=== PATIENT | male | born 1960 | race Caucasian/White ===

== ENCOUNTER 2023-07-30 12:33 | Emergency (ER) | payer MEDICARE, BC, SELFPAY ==
[2023-07-30] VITALS (10 sets, daily range): BP systolic 112; BP diastolic 72; PULSE 61–84; RESP 18; TEMP 36.5; O2SAT 95–99
--- NOTE | 2023-07-30 12:54 | ED.GENADULT ---
HPI - General Adult General Chief complaint: Back Injury/Pain Stated complaint: Mid back pain, nausea Time Seen by Provider: 07/30/23 12:40 History of Present Illness HPI narrative: [age] year white male with intermittent right periscapular pain. This been present for few days it is worse with motion worse with riding on a golf cart. He has been golfing quite a bit lately. He describes the pain is periscapular he has however had a aortic valve replacement. He is on Coumadin. He denies anterior chest pain, but he has had some nausea, but he has had no diaphoresis no abdominal pain. He is wanting if this might be is kidneys or his gallbladder. He describes it as periscapular on the right as mention. It is worse with throwing his shoulders back ill feel the tightness or discomfort. He has not any fevers chills, no lower extremity swelling or edema. He presents to ER for assessment. 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 Related Data Home Medications ?Medication ?Instructions ?Recorded ?Confirmed amlodipine 5 mg tablet 5 mg PO QDAY 02/09/22 07/30/23 atorvastatin 20 mg tablet 20 mg PO QDAY 02/09/22 07/30/23 colchicine 0.6 mg tablet 0.6 mg PO QDAY 02/09/22 07/30/23 furosemide 20 mg tablet 20 mg PO QDAY 02/09/22 07/30/23 lisinopril 20 mg tablet 20 mg PO QDAY 02/09/22 07/30/23 metoprolol tartrate 50 mg tablet 50 mg PO QDAY 02/09/22 07/30/23 spironolactone 25 mg tablet 25 mg PO QDAY 02/09/22 07/30/23 warfarin 2 mg tablet See Rx Instructions PO .COMPLEX 02/09/22 07/30/23 Previous Rx's ?Medication ?Instructions ?Recorded prednisone 20 mg tablet 20 mg PO BID #10 tabs 07/30/23 Allergies Allergy/AdvReac Type Severity Reaction Status Date / Time No Known Drug Allergies Allergy Verified 07/30/23 14:41 Review of Systems Status of ROS: Reports: 6 or more systems reviewed and unremarkable except as noted in History and below [facility] Surgical History History of surgery on lower extremity (~1982) ?Z98.890 - Other specified postprocedural states (ICD-10) H/O arthroscopy of left knee (~03/1985) ?Z98.890 - Other specified postprocedural states (ICD-10) S/P trigger finger release (03/18/21) ?Z98.890 - Other specified postprocedural states (ICD-10) Status 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) ?Z96.652 - Presence of left artificial knee joint (ICD-10) Family History Father High blood pressure Alcohol dependence Coronary artery disease Brother Alcohol dependence Mother Myocardial infarction Social History Smoking Status: Former smoker How often do you have a drink containing alcohol: 4 or more times a week AUDIT-C Alcohol total score: 4 Non-prescribed substance use: marijuana (any form) Exam Narrative: Exam Narrative: Objective: Vital signs are within normal limits Patient is alert or x3 very pleasant HEENT is unremarkable no facial asymmetry neck is supple chest is clear no rales or wheezing patient does have some mild tendernes around his scapula, in the rhomboid muscle area, but he does not really report that that is exactly the same, he can recreate some discomfort by throwing shoulders back and movement. He has had nausea as mentioned above. Patient denies abdominal pain Extremities are no edema neurologic nonfocal, good peripheral perfusion noted Const: Vital Signs, click to edit/add: Vital Signs - 24 hr 07/30/23 12:40 07/30/23 13:59 07/30/23 14:00 Temperature 97.7 F Pulse Rate 73 61 Pulse Rate [Right Pulse Oximeter] 84 Respiratory Rate 18 Blood Pressure [Ri ght Upper Arm] 112/72 Pulse Oximetry 98 96 96 Oxygen Delivery Me thod Room Air 07/30/23 14:15 07/30/23 14:37 07/30/23 14:45 Temperature Pulse Rate 64 73 75 Pulse Rate [Right Pulse Oximeter] Respiratory Rate Blood Pressure [Ri ght Upper Arm] Pulse Oximetry 96 95 99 Oxygen Delivery Me thod 07/30/23 15:00 07/30/23 15:15 07/30/23 15:30 Temperature Pulse Rate 79 72 75 Pulse Rate [Right Pulse Oximeter] Respiratory Rate Blood Pressure [Ri ght Upper Arm] Pulse Oximetry 96 97 95 Oxygen Delivery Me thod 07/30/23 15:45 Temperature Pulse Rate 75 Pulse Rate [Right Pulse Oximeter] Respiratory Rate Blood Pressure [Ri ght Upper Arm] Pulse Oximetry 97 Oxygen Delivery Me thod Course Vital Signs Vital signs: Initial Vital Signs Temperature 97.7 F 07/30/23 12:40 Temperature Source Temporal Artery Scan 07/30/23 12:40 Pulse Rate 84 07/30/23 12:40 Respiratory Rate 18 07/30/23 12:40 Blood Pressure 112/72 07/30/23 12:40 Blood Pressure Mean 85 07/30/23 12:40 Blood Pressure Position Sitting 07/30/23 12:40 Pulse Oximetry 98 07/30/23 12:40 Oxygen Delivery Method Room Air 07/30/23 12:40 Vital Signs Temperature 97.7 F 07/30/23 12:40 Pulse Rate 84 07/30/23 12:40 Respiratory Rate 18 07/30/23 12:40 Blood Pressure 112/72 07/30/23 12:40 Pulse Oximetry 98 07/30/23 12:40 Oxygen Delivery Method Room Air 07/30/23 12:40 Temperature 97.7 F 07/30/23 12:40 Pulse Rate 75 07/30/23 15:45 Respiratory Rate 18 07/30/23 12:40 Blood Pressure 112/72 07/30/23 12:40 Pulse Oximetry 97 07/30/23 15:45 Oxygen Delivery Method Room Air 07/30/23 12:40 Medications Administered Medications: Discontinued Medications Generic Name Dose Route Start Last Admin Trade Name Freq PRN Reason Stop Dose Admin Sodium Chloride 500 mls @ 500 mls/hr 07/30/23 12:59 07/30/23 14:26 0.9 % Sodium Chloride 500 Ml IV 07/30/23 13:58 Infused .Q1H ONE Infusion Prednisone 60 mg 07/30/23 15:40 07/30/23 15:45 Prednisone 20 Mg Tablet PO 07/30/23 15:41 60 mg ONCE ONE Administration Medical Decision Making MDM Narrative Medical decision making narrative: [age] year white male status post aortic valve replacement on Coumadin, presents with periscapular pain on the right. I am fairly confident this is a musculoskeletal type issu, however the patient does not recall injury, he has had some nausea. I think given his history of valve replacement be reasonable to check a CT of his chest, labs, troponin, EKG. Will put him on a air sampling and monitoring. Ensure that his rhythm is sinus. Does not feel he needs something for pain at this time cough, however if his examination and labs look reassuring I think we could put him on a Medrol Dosepak or prednisone as that might help him with the anti-inflammatory effect to this area. Some stretching and ice would be appropriate as well. Please see addendum dictation. 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 He is adequately anticoagulated. His troponin is 0. His repeat EKG shows AFib rate controlled. His CT scan is pending if this is unremarkable, I think he can be discharged to home, with his follow-up with Cardiology in with an echo as planned I recommend he sees churn operator margarine as well within the next week to 2 weeks after his echo. Would also I think for this rhomboid muscle spasm give him some steroids will given prednisone 50 now and then 20 b.i.d. for 5 days. Return to ED problems or concerns. Would recommend he follow up with primary care doctor in next 3-4 days to determine if physical therapy other modality for his rhomboid muscle area pain would be helpful. Patient's CRP is negative, troponin point of care is negative. White count is normal, hemoglobin 11.1. INR is 3.47. Given his history of intermittent paroxysmal atrial fibrillation I think will have him follow up with [place] cardiology as scheduled. He will continue his Coumadin, will give him some prednisone for his periscapular pain which is likely rhomboid muscle pain. Follow up with regular doctor in the next few days to discuss. Follow-up is echo scheduled The patient has been following his pulmonary nodules and several or noted on his CT scan, he has no evidence of pulmonary embolism or dissection. He will follow-up with Dr. Palafox to discuss this and make sure they have not changed. He also will finish with his echo that he has scheduled an consult with Dr. [place]y Hill churn operator margarine after his echo. Will give him some prednisone for the periscapular pain and recheck here as needed. Lab Data Labs: Lab Results 07/30/23 Range/Units 13:30 WBC 7.57 (4.50-11.00) K/uL RBC 3.57 L (4.30-5.90) m/uL Hgb 11.1 L (13.5-17.5) gm/dL Hct 33.6 L (37.0-53.0) % MCV 94 (80-100) fL MCH 31 (26-34) pg MCHC 33 (32-36) gm/dL RDW Coeff of Stacy 13.0 (11.5-15.5) % Plt Count 241 (140-440) K/uL Neut % (Auto) 65.2 (42.0-72.0) % Lymph % (Auto) 17.6 L (20-44) % [place] % (Auto) 14.1 H (0.0-11.0) % Eos % (Auto) 2.2 (0.0-7.0) % Baso % (Auto) 0.5 (0.0-3.0) % Neut # (Auto) 4.93 (1.7-7.0) K/uL Lymph # (Auto) 1.30 (0.90-2.90) K/uL [place] # (Auto) 1.10 H (0.00-0.90) K/UL Eos # (Auto) 0.17 (0.00-0.50) K/uL Baso # (Auto) 0.04 (0.00-0.30) K/uL Abs Immat Gran (auto) 0.03 (0.00-0.30) K/uL Imm/Tot Granulo (auto) 0.4 % INR 3.47 H (0.91-1.10) Sodium 137 (135-149) mmol/L Potassium 4.9 (3.6-5.1) mmol/L Chloride 109 (96-114) mmol/L Carbon Dioxide 21 (20-32) mmol/L Anion Gap 7 (7-15) mEq/L BUN 36 H (7-30) mg/dL Creatinine 1.5 (0.5-1.5) mg/dL Estimated GFR 51 ml/min Glucose 95 (60-115) mg/dL Calcium 9.3 (8.4-10.6) mg/dL C-Reactive Protein < 0.5 L (0.5-1.0) mg/dL NT-Pro-B Natriuret Pep 2040 pg/mL POC Troponin I 0.00 L (0.01-0.04) ng/ml Discharge Plan Discharge Clinical Impression: Periscapular pain of right shoulder, Aortic valve replaced Patient Disposition: Home, Self-Care Condition: Stable Additional Instructions: Light activity, follow up with regular doctor in 3-5 days, follow-up with your ultrasound and churn operator marg[employer] as planned. Will give you prednisone for the muscle pain in your shoulder blade area, and see her doctor because physical therapy sometimes is helpful with this as well. May use Tylenol as well. May use ice to the upper back where the discomfort is 5-10 minutes 3 to 5 times a day. Recheck with Dr. Palafox regarding the pulmonary nodules noted on your CT scan, I know you following these with regular scans. Activity Level: Light activity Discharge Diet: Regular Prescriptions: New prednisone 20 mg tablet 20 mg PO BID Qty: 10 0RF No Action furosemide 20 mg tablet 20 mg PO QDAY amlodipine 5 mg tablet 5 mg PO QDAY metoprolol tartrate 50 mg tablet 50 mg PO QDAY lisinopril 20 mg tablet 20 mg PO QDAY warfarin 2 mg tablet See Rx Instructions PO .COMPLEX Rx Instructions: orally; spironolactone 25 mg tablet 25 mg PO QDAY atorvastatin 20 mg tablet 20 mg PO QDAY colchicine 0.6 mg tablet 0.6 mg PO QDAY Follow Up/Referrals: Provider,Not a Local [Referring] - Stand Alone Forms: [facility] Info Instructions
--- NOTE | 2023-07-30 12:58 | CRLHL7_ITS ---
For Patients: As a result of the Century Cures Act, medical imaging exams and procedure reports are released immediately into your electronic medical record. You may view this report before your referring provider. If you have questions, please contact your health care provider. Indication: Thoracic pain. Technique: CT pulmonary arteriography of the chest was performed following the administration of 95 mL Isovue 370. Comparison: None available. Findings: Lungs and pleura: There are several subpleural noncalcified pulmonary nodules measure up to 11 mm in the left lower lobe (5/104). Additional nodules are seen within the left lower lobe (5/113 and 129) in the right lower lobe (5/111). Scattered smaller bilateral noncalcified pulmonary nodules. No pleural effusion or pneumothorax. Heart and great vessels: The heart is mildly enlarged. Status post aortic valve replacement. No pericardial effusion. Aorta and pulmonary artery are normal in caliber. No evidence of right heart strain. Pulmonary artery opacification is adequate. No evidence of pulmonary embolism. Thyroid and mediastinum: Thyroid is normal. Mildly enlarged right hilar lymph node measuring just over 1 cm in short axis. Chest wall: Unremarkable. Visualized upper abdomen: Unremarkable. Bones: Diffuse idiopathic skeletal hyperostosis. Multilevel degenerative disc disease. Post median sternotomy. Impression: 1. No evidence of pulmonary embolism. 2. Multiple solid nodules measuring greater than 6 mm. Recommend short term interval follow up CT at 3-6 months based on Fleischner Society recommendations unless there is a history of known malignancy or immunocompromise. 3. Mildly enlarged right hilar lymph node, indeterminate. 4. Cardiomegaly. Please note that all CT scans at this facility use dose modulation, iterative reconstruction, and/or weight-based dosing when appropriate to reduce radiation dose to as low as reasonably achievable. Dictated by Pascale Mccallum MD @ 07/30/2023 3:27:56 PM (Electronically Signed)
[2023-07-30] MEDS: 0.9 % SODIUM CHLORIDE 500 ML 500 ML IV (13:45)
[2023-07-30 13:50] LABS: Basophils Absolute Auto 0.04 K/uL (0.00-0.30); Basophils Percent Auto 0.5 % (0.0-3.0); Eosinophils Absolute Auto 0.17 K/uL (0.00-0.50); Eosinophils Percent Auto 2.2 % (0.0-7.0); Hematocrit 33.6 % (37.0-53.0); Hemoglobin* 11.1 gm/dL (13.5-17.5); Immature Granulocytes Abs Auto 0.03 K/uL (0.00-0.30); Immature Granulocytes Pct Auto 0.4 %; Lymphocytes Percent Auto 17.6 % (20-44); Mean Corpuscular HGB Conc 33 gm/dL (32-36); Mean Corpuscular Hemoglobin 31 pg (26-34); Mean Corpuscular Volume 94 fL (80-100); Monocytes Percent Auto 14.1 % (0.0-11.0); Neutrophils Absolute Auto 4.93 K/uL (1.7-7.0); Neutrophils Percent Auto 65.2 % (42.0-72.0); Platelet Count* 241 K/uL (140-440); Red Blood Count 3.57 m/uL (4.30-5.90); White Blood Count* 7.57 K/uL (4.50-11.00)
[2023-07-30 13:54] LABS: Slide Review Reflex No
[2023-07-30 13:59] LABS: Chloride* 109 mmol/L (96-114)
[2023-07-30 14:00] LABS: Potassium* 4.9 mmol/L (3.6-5.1); Sodium* 137 mmol/L (135-149)
[2023-07-30 14:02] LABS: Creatinine* 1.5 mg/dL (0.5-1.5); Estimated Glomerular Filt Rate 51 ml/min
[2023-07-30 14:03] LABS: Anion Gap 7 mEq/L (7-15); Blood Urea Nitrogen* 36 mg/dL (7-30); Carbon Dioxide* 21 mmol/L (20-32); Glucose* 95 mg/dL (60-115); INR 3.47 (0.91-1.10); Prothrombin Time 37.7 Seconds
[2023-07-30 14:04] LABS: Calcium* 9.3 mg/dL (8.4-10.6)
[2023-07-30 14:21] LABS: C Reactive Protein* < 0.5 mg/dL (0.5-1.0); NT Pro B Type NatriureticPept* 2040 pg/mL
[2023-07-30] MEDS: predniSONE 20 MG TABLET 60 MG PO (15:45)
== END 2023-07-30 15:57 | disposition home or self-care (01) ==
PROVIDERS: Emergency Provider Family Medicine; PCP Family Medicine
DX: M25.511 Pain in right shoulder (principal); Z95.2 Presence of prosthetic heart valve
CPT/HCPCS: 36415; 71275; 80048; 83880; 84484; 85025; 85610; 86140; 93005; 99284; 99285; J7030; J7512; Q9967

== ENCOUNTER 2023-09-08 19:32 | Emergency (ER) | payer MEDICARE, BC, SELFPAY ==
[2023-09-08 19:45] VITALS: BP 121/76; PULSE 75; RESP 18; TEMP 37.1; O2SAT 96; BMI 31.7
--- NOTE | 2023-09-08 20:11 | ED_ITS ---
HPI - General Adult General Chief complaint: Unspecified Complaint, Adult Stated complaint: potassium tested high Time Seen by Provider: 09/08/23 19:54 Source: patient Mode of arrival: ambulatory Limitations: no limitations History of Present Illness HPI narrative: 63-year-old male presenting today at the request of his clinician for elevated potassium. Patient was seen earlier in the day for what he states was fatigue. He states he has been fatigued for the last month or so. He denies feeling short of breath. He denies chest pain. He just states that he has decreased energy and can do all the things he used to do. The example he uses is that after he golfs 9 holes he would like to go home a nap were as he used golf ball 18 holes in the past. He denies any fevers or chills. No nausea or vomiting. He denies any diarrhea or changes in urinary habits. Patient states that his blood pressures also been running low and fluctuates quite a bit. Because of this he states that he was taken off his amlodipine and spironolactone last week. Patient states that he had a potassium 6.2 and was told to come to the ED today. Related Data Home Medications ?Medication ?Instructions ?Recorded ?Confirmed atorvastatin 20 mg tablet 20 mg PO QDAY 02/09/22 09/08/23 furosemide 20 mg tablet 20 mg PO QDAY 02/09/22 09/08/23 lisinopril 20 mg tablet 20 mg PO QDAY 02/09/22 09/08/23 metoprolol tartrate 50 mg tablet 50 mg PO QDAY 02/09/22 09/08/23 spironolactone 25 mg tablet 25 mg PO QDAY 02/09/22 09/08/23 warfarin 2 mg tablet See Rx Instructions PO .COMPLEX 02/09/22 09/08/23 allopurinol 100 mg tablet 100 mg PO DAILY 09/08/23 09/08/23 Allergies Allergy/AdvReac Type Severity Reaction Status Date / Time No Known Drug Allergies Allergy Verified 09/08/23 19:49 Review of Systems Status of ROS: Reports: 10 or more systems reviewed and unremarkable except as noted in History and below [facility] Surgical History History of surgery on lower extremity (~1982) ?Z98.890 - Other specified postprocedural states (ICD-10) H/O arthroscopy of left knee (~03/1985) ?Z98.890 - Other specified postprocedural states (ICD-10) S/P trigger finger release (03/18/21) ?Z98.890 - Other specified postprocedural states (ICD-10) Status 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) ?Z96.652 - Presence of left artificial knee joint (ICD-10) Family History Father High blood pressure Alcohol dependence Coronary artery disease Brother Alcohol dependence Mother Myocardial infarction Social History Smoking Status: Former smoker How often do you have a drink containing alcohol: 4 or more times a week AUDIT-C Alcohol total score: 4 Non-prescribed substance use: marijuana (any form) Exam Narrative: Exam Narrative: Well-nourished well-developed patient in no acute distress. Alert and oriented. Answers questions appropriately. Mood and affect are appropriate. Thoughts are goal oriented and rational. No tangential or magical thinking noted. Patient speaks in full sentences without needing to catch his breath. HEENT: Normocephalic atraumatic. Pupils are equally round reactive to light. Extraocular muscles are intact. Conjunctivae are moist without any icterus noted. Moist mucous membranes. Posterior pharynx is normal. Neck is soft without any lymphadenopathy or thyromegaly. No masses are appreciated. Cardiovascular: Heart is regular rate and rhythm S1 and S2 are present without any murmurs. Lungs: Clear to auscultation bilaterally no wheezes rhonchi or rales are appreciated. Patient takes deep breaths without any discomfort. Abdomen: Soft and nontender nondistended with normal bowel sounds. Extremities: Bilateral lower extremities are without edema. Normal DP and PT pulses. Skin: Well perfused without any obvious rashes. Const: Vital Signs, click to edit/add: Vital Signs - 24 hr 09/08/23 19:45 09/08/23 20:45 09/08/23 20:46 Temperature 98.8 F Pulse Rate 72 73 Pulse Rate [Right Pulse Oximeter] 75 Respiratory Rate 18 Blood Pressure 117/81 Blood Pressure [Ri ght Upper Arm] 121/76 Pulse Oximetry 96 96 96 Oxygen Delivery Me thod Room Air 09/08/23 21:00 Temperature Pulse Rate 73 Pulse Rate [Right Pulse Oximeter] Respiratory Rate Blood Pressure Blood Pressure [Ri ght Upper Arm] Pulse Oximetry 96 Oxygen Delivery Pr thod Course Course ED Course: Reviewed patient's blood work from the clinic: His potassium was 6.2, sodium normal at 134. BUN and creatinine both elevated at 47 and 1.83 respectively. I was able to look at patient's past lab work and this elevated potassium and BUN creatinine are very much above his baseline. EKG, read by me, shows normal sinus rhythm with a pulse of 74. No acute changes to suggest hyperkalemia. We did repeat his blood work today: CBC shows mild anemia with a hemoglobin of 11, this is unchanged from a previous CBC checked in July of this year. His INR is therapeutic at 2.11. Normal sodium and potassium with a sodium of 136 and potassium of 5.1. And carbon dioxide slightly low at 15. BUN and creatinine both remain elevated at 50 and 2.0. Normal magnesium. Normal LFTs. Normal CRP. TSH pending at this time. UA is unremarkable. Patient received a L of normal saline while he was here. Vital Signs Vital signs: Initial Vital Signs Temperature 98.8 F 09/08/23 19:45 Temperature Source Temporal Artery Scan 09/08/23 19:45 Pulse Rate 75 09/08/23 19:45 Respiratory Rate 18 09/08/23 19:45 Blood Pressure 121/76 09/08/23 19:45 Blood Pressure Mean 91 09/08/23 19:45 Blood Pressure Position Sitting 09/08/23 19:45 Pulse Oximetry 96 09/08/23 19:45 Oxygen Delivery Method Room Air 09/08/23 19:45 Vital Signs Temperature 98.8 F 09/08/23 19:45 Pulse Rate 75 09/08/23 19:45 Respiratory Rate 18 09/08/23 19:45 Blood Pressure 121/76 09/08/23 19:45 Pulse Oximetry 96 09/08/23 19:45 Oxygen Delivery Method Room Air 09/08/23 19:45 Temperature 98.8 F 09/08/23 19:45 Pulse Rate 73 09/08/23 21:00 Respiratory Rate 18 09/08/23 19:45 Blood Pressure 117/81 09/08/23 20:45 Pulse Oximetry 96 09/08/23 21:00 Oxygen Delivery Method Room Air 09/08/23 19:45 Medications Administered Medications: Discontinued Medications Generic Name Dose Route Start Last Admin Trade Name Elieser PRN Reason Stop Dose Admin Sodium Chloride 1,000 mls @ 1,000 mls/hr 09/08/23 20:15 09/08/23 20:44 0.9 % Sodium Chloride 1000 Ml IV 09/08/23 21:14 1,000 mls/hr .Q1H NAY Administration Medical Decision Making MDM Narrative Medical decision making narrative: 63-year-old male with an elevated potassium reading in the clinic, recheck today was normal. Fatigue of unclear etiology. He does continue to have acute renal failure for unclear reason. It sounds like he may not be drinking as much as he thinks he is. At this time recommend he follow-up with his primary care provider next week for a repeat chemistry check. Patient already has an appointment scheduled. Lab Data Lab results reviewed: Yes I reviewed the patient's lab results Labs: Lab Results 09/08/23 09/08/23 09/08/23 Range/Units 20:20 20:20 20:20 WBC 9.04 (4.50-11.00) K/uL RBC 3.39 L (4.30-5.90) m/uL Hgb 11.0 L (13.5-17.5) gm/dL Hct 32.8 L (37.0-53.0) % MCV 97 (80-100) fL MCH 32 (26-34) pg MCHC 34 (32-36) gm/dL RDW Coeff of Stacy 13.2 (11.5-15.5) % Plt Count 209 (140-440) K/uL Neut % (Auto) 68.5 (42.0-72.0) % Lymph % (Auto) 14.3 L (20-44) % Spink % (Auto) 12.6 H (0.0-11.0) % Eos % (Auto) 3.1 (0.0-7.0) % Baso % (Auto) 0.8 (0.0-3.0) % Neut # (Auto) 6.20 (1.7-7.0) K/uL Lymph # (Auto) 1.30 (0.90-2.90) K/uL Spink # (Auto) 1.10 H (0.00-0.90) K/UL Eos # (Auto) 0.28 (0.00-0.50) K/uL Baso # (Auto) 0.07 (0.00-0.30) K/uL Abs Immat Gran (auto) 0.06 (0.00-0.30) K/uL Imm/Tot Granulo (auto) 0.7 % INR 2.11 H (0.91-1.10) Sodium Cancelled 136 Potassium Cancelled 5.1 Chloride Cancelled Carbon Dioxide Anion Gap BUN Creatinine Estimated Creat Clear Estimated GFR Glucose Lactate (0.5-1.9) mmol/L Calcium Magnesium (1.5-2.6) mg/dL Total Bilirubin (0.1-1.5) mg/dL Direct Bilirubin (0.0-0.5) mg/dL AST (12-35) U/L ALT (4-50) U/L Alkaline Phosphatase (40-150) U/L Troponin I (0.01-0.04) ng/mL C-Reactive Protein (0.5-1.0) mg/dL Total Protein (6.0-8.3) g/dL Albumin (3.3-5.0) g/dL Urine Color (Yellow) Urine Appearance (Clear) Urine pH (5.0-8.5) Ur Specific [place] (1.000-1.030) Urine Protein (Negative) Urine Glucose (UA) (Negative) Urine Ketones (Negative) Urine Blood (Negative) Urine Nitrite (Negative) Urine Bilirubin (Negative) Urine Urobilinogen (0.2-1.0) Ur Leukocyte Esterase (Negative) Urine RBC (0-2) Urine WBC (0-5) Ur Squamous Epith Cells (None-Few) Urine Bacteria (None) 09/08/23 09/08/23 09/08/23 Range/Units 20:20 20:20 20:20 WBC (4.50-11.00) K/uL RBC (4.30-5.90) m/uL Hgb (13.5-17.5) gm/dL Hct (37.0-53.0) % MCV (80-100) fL MCH (26-34) pg MCHC (32-36) gm/dL RDW Coeff of Stacy (11.5-15.5) % Plt Count (140-440) K/uL Neut % (Auto) (42.0-72.0) % Lymph % (Auto) (20-44) % [place] % (Auto) (0.0-11.0) % Eos % (Auto) (0.0-7.0) % Baso % (Auto) (0.0-3.0) % Neut # (Auto) (1.7-7.0) K/uL Lymph # (Auto) (0.90-2.90) K/uL [place] # (Auto) (0.00-0.90) K/UL Eos # (Auto) (0.00-0.50) K/uL Baso # (Auto) (0.00-0.30) K/uL Abs Immat Gran (auto) (0.00-0.30) K/uL Imm/Tot Granulo (auto) % INR (0.91-1.10) Sodium Potassium Chloride 111 Carbon Dioxide Cancelled 15 L Anion Gap Cancelled 10 BUN Cancelled Creatinine Estimated Creat Clear Estimated GFR Glucose Lactate (0.5-1.9) mmol/L Calcium Magnesium (1.5-2.6) mg/dL Total Bilirubin (0.1-1.5) mg/dL Direct Bilirubin (0.0-0.5) mg/dL AST (12-35) U/L ALT (4-50) U/L Alkaline Phosphatase (40-150) U/L Troponin I (0.01-0.04) ng/mL C-Reactive Protein (0.5-1.0) mg/dL Total Protein (6.0-8.3) g/dL Albumin (3.3-5.0) g/dL Urine Color (Yellow) Urine Appearance (Clear) Urine pH (5.0-8.5) Ur Specific [place] (1.000-1.030) Urine Protein (Negative) Urine Glucose (UA) (Negative) Urine Ketones (Negative) Urine Blood (Negative) Urine Nitrite (Negative) Urine Bilirubin (Negative) Urine Urobilinogen (0.2-1.0) Ur Leukocyte Esterase (Negative) Urine RBC (0-2) Urine WBC (0-5) Ur Squamous Epith Cells (None-Few) Urine Bacteria (None) 09/08/23 09/08/23 09/08/23 Range/Units 20:20 20:20 20:20 WBC (4.50-11.00) K/uL RBC (4.30-5.90) m/uL Hgb (13.5-17.5) gm/dL Hct (37.0-53.0) % MCV (80-100) fL MCH (26-34) pg MCHC (32-36) gm/dL RDW Coeff of Stacy (11.5-15.5) % Plt Count (140-440) K/uL Neut % (Auto) (42.0-72.0) % Lymph % (Auto) (20-44) % [place] % (Auto) (0.0-11.0) % Eos % (Auto) (0.0-7.0) % Baso % (Auto) (0.0-3.0) % Neut # (Auto) (1.7-7.0) K/uL Lymph # (Auto) (0.90-2.90) K/uL [place] # (Auto) (0.00-0.90) K/UL Eos # (Auto) (0.00-0.50) K/uL Baso # (Auto) (0.00-0.30) K/uL Abs Immat Gran (auto) (0.00-0.30) K/uL Imm/Tot Granulo (auto) % INR (0.91-1.10) Sodium Potassium Chloride Carbon Dioxide Anion Gap BUN 50 H Creatinine Cancelled 2.0 H Estimated Creat Clear Cancelled 39.22 Estimated GFR Cancelled Glucose Lactate (0.5-1.9) mmol/L Calcium Magnesium (1.5-2.6) mg/dL Total Bilirubin (0.1-1.5) mg/dL Direct Bilirubin (0.0-0.5) mg/dL AST (12-35) U/L ALT (4-50) U/L Alkaline Phosphatase (40-150) U/L Troponin I (0.01-0.04) ng/mL C-Reactive Protein (0.5-1.0) mg/dL Total Protein (6.0-8.3) g/dL Albumin (3.3-5.0) g/dL Urine Color (Yellow) Urine Appearance (Clear) Urine pH (5.0-8.5) Ur Specific [place] (1.000-1.030) Urine Protein (Negative) Urine Glucose (UA) (Negative) Urine Ketones (Negative) Urine Blood (Negative) Urine Nitrite (Negative) Urine Bilirubin (Negative) Urine Urobilinogen (0.2-1.0) Ur Leukocyte Esterase (Negative) Urine RBC (0-2) Urine WBC (0-5) Ur Squamous Epith Cells (None-Few) Urine Bacteria (None) 09/08/23 09/08/23 09/08/23 Range/Units 20:20 20:20 20:20 WBC (4.50-11.00) K/uL RBC (4.30-5.90) m/uL Hgb (13.5-17.5) gm/dL Hct (37.0-53.0) % MCV (80-100) fL MCH (26-34) pg MCHC (32-36) gm/dL RDW Coeff of Stacy (11.5-15.5) % Plt Count (140-440) K/uL Neut % (Auto) (42.0-72.0) % Lymph % (Auto) (20-44) % [place] % (Auto) (0.0-11.0) % Eos % (Auto) (0.0-7.0) % Baso % (Auto) (0.0-3.0) % Neut # (Auto) (1.7-7.0) K/uL Lymph # (Auto) (0.90-2.90) K/uL [place] # (Auto) (0.00-0.90) K/UL Eos # (Auto) (0.00-0.50) K/uL Baso # (Auto) (0.00-0.30) K/uL Abs Immat Gran (auto) (0.00-0.30) K/uL Imm/Tot Granulo (auto) % INR (0.91-1.10) Sodium Potassium Chloride Carbon Dioxide Anion Gap BUN Creatinine Estimated Creat Clear Estimated GFR 36 Glucose Cancelled 106 Lactate 1.0 (0.5-1.9) mmol/L Calcium Cancelled 9.7 Magnesium 1.8 (1.5-2.6) mg/dL Total Bilirubin 0.5 (0.1-1.5) mg/dL Direct Bilirubin 0.3 (0.0-0.5) mg/dL AST 31 (12-35) U/L ALT 22 (4-50) U/L Alkaline Phosphatase 78 (40-150) U/L Troponin I 0.01 (0.01-0.04) ng/mL C-Reactive Protein < 0.5 L (0.5-1.0) mg/dL Total Protein 7.5 (6.0-8.3) g/dL Albumin 4.6 (3.3-5.0) g/dL Urine Color (Yellow) Urine Appearance (Clear) Urine pH (5.0-8.5) Ur Specific [place] (1.000-1.030) Urine Protein (Negative) Urine Glucose (UA) (Negative) Urine Ketones (Negative) Urine Blood (Negative) Urine Nitrite (Negative) Urine Bilirubin (Negative) Urine Urobilinogen (0.2-1.0) Ur Leukocyte Esterase (Negative) Urine RBC (0-2) Urine WBC (0-5) Ur Squamous Epith Cells (None-Few) Urine Bacteria (None) 09/08/23 Range/Units 20:30 WBC (4.50-11.00) K/uL RBC (4.30-5.90) m/uL Hgb (13.5-17.5) gm/dL Hct (37.0-53.0) % MCV (80-100) fL MCH (26-34) pg MCHC (32-36) gm/dL RDW Coeff of Stacy (11.5-15.5) % Plt Count (140-440) K/uL Neut % (Auto) (42.0-72.0) % Lymph % (Auto) (20-44) % [place] % (Auto) (0.0-11.0) % Eos % (Auto) (0.0-7.0) % Baso % (Auto) (0.0-3.0) % Neut # (Auto) (1.7-7.0) K/uL Lymph # (Auto) (0.90-2.90) K/uL [place] # (Auto) (0.00-0.90) K/UL Eos # (Auto) (0.00-0.50) K/uL Baso # (Auto) (0.00-0.30) K/uL Abs Immat Gran (auto) (0.00-0.30) K/uL Imm/Tot Granulo (auto) % INR (0.91-1.10) Sodium Potassium Chloride Carbon Dioxide Anion Gap BUN Creatinine Estimated Creat Clear Estimated GFR Glucose Lactate (0.5-1.9) mmol/L Calcium Magnesium (1.5-2.6) mg/dL Total Bilirubin (0.1-1.5) mg/dL Direct Bilirubin (0.0-0.5) mg/dL AST (12-35) U/L ALT (4-50) U/L Alkaline Phosphatase (40-150) U/L Troponin I (0.01-0.04) ng/mL C-Reactive Protein (0.5-1.0) mg/dL Total Protein (6.0-8.3) g/dL Albumin (3.3-5.0) g/dL Urine Color Yellow (Yellow) Urine Appearance Clear (Clear) Urine pH 5.5 (5.0-8.5) Ur Specific [place] 1.020 (1.000-1.030) Urine Protein Negative (Negative) Urine Glucose (UA) Negative (Negative) Urine Ketones Negative (Negative) Urine Blood Negative (Negative) Urine Nitrite Negative (Negative) Urine Bilirubin Negative (Negative) Urine Urobilinogen 0.2 (0.2-1.0) Ur Leukocyte Esterase Negative (Negative) Urine RBC 0-2 (0-2) Urine WBC 0-2 (0-5) Ur Squamous Epith Cells Few (None-Few) Urine Bacteria None (None) ECG Data Attestation: I personally reviewed and interpreted this ECG as follows: Discharge Plan Discharge Clinical Impression: Acute renal failure Patient Disposition: Home, Self-Care Condition: Stable Additional Instructions: Recommend you follow-up with your primary care provider early next week to repeat a basic metabolic panel and recheck her electrolyte levels and kidney function. Your repeat examination today revealed a normal potassium level of 5.1. Prescriptions: No Action furosemide 20 mg tablet 20 mg PO QDAY metoprolol tartrate 50 mg tablet 50 mg PO QDAY lisinopril 20 mg tablet 20 mg PO QDAY warfarin 2 mg tablet See Rx Instructions PO .COMPLEX Rx Instructions: orally; spironolactone 25 mg tablet 25 mg PO QDAY atorvastatin 20 mg tablet 20 mg PO QDAY allopurinol 100 mg tablet 100 mg PO DAILY Follow Up/Referrals: Gaurang Palafox MD [Primary Care Provider] - Stand Alone Forms: [employer] Info Instructions
[2023-09-08 20:28] LABS: Basophils Absolute Auto 0.07 K/uL (0.00-0.30); Basophils Percent Auto 0.8 % (0.0-3.0); Eosinophils Absolute Auto 0.28 K/uL (0.00-0.50); Eosinophils Percent Auto 3.1 % (0.0-7.0); Hematocrit 32.8 % (37.0-53.0); Immature Granulocytes Abs Auto 0.06 K/uL (0.00-0.30); Immature Granulocytes Pct Auto 0.7 %; Lymphocytes Percent Auto 14.3 % (20-44); Mean Corpuscular HGB Conc 34 gm/dL (32-36); Mean Corpuscular Hemoglobin 32 pg (26-34); Mean Corpuscular Volume 97 fL (80-100); Monocytes Percent Auto 12.6 % (0.0-11.0); Neutrophils Percent Auto 68.5 % (42.0-72.0); Platelet Count* 209 K/uL (140-440); RDW Coefficient of Variation % 13.2 % (11.5-15.5); Red Blood Count 3.39 m/uL (4.30-5.90); White Blood Count* 9.04 K/uL (4.50-11.00)
[2023-09-08 20:31] LABS: Slide Review Reflex No
[2023-09-08 20:43] LABS: Albumin* 4.6 g/dL (3.3-5.0); Chloride* 111 mmol/L (96-114)
[2023-09-08 20:44] LABS: Appearance Urine Clear (Clear); Bilirubin Urine Negative (Negative); Blood Urine Negative (Negative); Color Urine Yellow (Yellow); Glucose Urine Negative (Negative); Ketones Urine Negative (Negative); Leukocyte Esterase Urine Negative (Negative); Nitrite Urine Negative (Negative); Protein Urine Negative (Negative); Urobilinogen Urine 0.2 (0.2-1.0); pH Urine 5.5 (5.0-8.5)
[2023-09-08 20:44] LABS: Sodium* 136 mmol/L (135-149)
[2023-09-08] MEDS: 0.9 % SODIUM CHLORIDE 1000 ml 1,000 ML IV (20:44)
[2023-09-08 20:45] VITALS: BP 117/81; PULSE 72; O2SAT 96
[2023-09-08 20:45] LABS: INR 2.11 (0.91-1.10); Potassium* 5.1 mmol/L (3.6-5.1); Prothrombin Time 25.2 Seconds
[2023-09-08 20:46] VITALS: PULSE 73; O2SAT 96
[2023-09-08 20:46] LABS: Est. Creatinine Clearance* 39.22; Estimated Glomerular Filt Rate 36 ml/min
[2023-09-08 20:47] LABS: Alanine Aminotransferase* 22 U/L (4-50); Alkaline Phosphatase* 78 U/L (40-150); Anion Gap 10 mEq/L (7-15); Aspartate Amino Transferase* 31 U/L (12-35); Bilirubin Direct* 0.3 mg/dL (0.0-0.5); Bilirubin Total* 0.5 mg/dL (0.1-1.5); Blood Urea Nitrogen* 50 mg/dL (7-30); Carbon Dioxide* 15 mmol/L (20-32); Glucose* 106 mg/dL (60-115); Total Protein* 7.5 g/dL (6.0-8.3)
[2023-09-08 20:48] LABS: Calcium* 9.7 mg/dL (8.4-10.6); Magnesium* 1.8 mg/dL (1.5-2.6)
[2023-09-08 20:59] LABS: C Reactive Protein* < 0.5 mg/dL (0.5-1.0); Troponin I* 0.01 ng/mL (0.01-0.04)
[2023-09-08 21:00] VITALS: PULSE 73; O2SAT 96
[2023-09-08 21:08] LABS: RBC Urine 0-2 (0-2); Squamous Epithelial Cell Urine Few (None-Few); WBC Urine 0-2 (0-5)
[2023-09-08 21:15] VITALS: PULSE 74; O2SAT 96
[2023-09-08 21:30] VITALS: PULSE 76; O2SAT 97
[2023-09-08 21:43] LABS: Erythrocyte SedimentationRate* 18 mm/hr (2-15)
== END 2023-09-08 21:47 | disposition home or self-care (01) ==
PROVIDERS: Emergency Provider Family Medicine; PCP Family Medicine
DX: N17.9 Acute kidney failure, unspecified (principal)
CPT/HCPCS: 36415; 80048; 80076; 81001; 83605; 83735; 84443; 84484; 85025; 85610; 85651; 86140; 93005; 94761; 99284; J7030

== ENCOUNTER 2024-02-27 10:47 | Day surgery (SDC) | payer MEDICARE, BC, SELFPAY ==
[2024-02-27] MEDS: 0.9 % SODIUM CHLORIDE 500 ML 500 ML 100 ML IV ×2 (11:00→15:57)
[2024-02-27 11:16] VITALS: BP 177/103; PULSE 105; RESP 16; TEMP 36.6; O2SAT 95; BMI 33.2
[2024-02-27 11:16] LABS: INR, Point of Care* 1.3 (0.8-1.4)
[2024-02-27] MEDS: SODIUM CHLORIDE 0.9 % (FLUSH) 10 ML SYRINGE IVF (11:20)
--- NOTE | 2024-02-27 11:48 | REH.PT ---
Patient seen in same day surgery for fitting and instruction of crutch use. Pt is scheduled for L foot fusion of 1st and 2nd toe with Dr. Huffman and scheduled to be wb through L heel only. Pt is fit with crutches, instructed in use on level and stairs. Patient rutho's competency with sit <> stand trans off chair, amb on level with wb through L heel and verbally instructed in how to perform stairs to enter his home. Once in home pt is on 1 level. Pt is now d/c from PT in hospital with crutches issued, goals met.
--- NOTE | 2024-02-27 12:15 | CRLHL7_ITS ---
For Patients: As a result of the Cures Act, medical imaging exams and procedure reports are released immediately into your electronic medical record. You may view this report before your referring provider. If you have questions, please contact your health care provider. Indication: Left 1st 2nd MPJ Fusion Technique: One fluoroscopic image of the left foot. Fluoroscopic time 33.3 seconds. IMPRESSION: Fluoroscopic guidance for fusion across the 1st MTP joint and surgery across the 2nd toe proximal interphalangeal joint. Dictated by Brad Gordillo MD @ 02/28/2024 12:48:00 PM (Electronically Signed)
[2024-02-27] MEDS: CEFAZOLIN 2 GM INJ IVP (13:07)
[2024-02-27] MEDS: BUPIVACAINE 0.25% 30 ML INJECTION (13:08)
[2024-02-27 15:54] VITALS: BP 126/92; PULSE 87; RESP 16; TEMP 36.9; O2SAT 96
--- NOTE | 2024-02-27 15:55 | W.ANESCHARGE ---
Anesthesia Charges Start Date/Time Anesthesia Start Date: 02/27/24 Anesthesia Start Time: 12:52 Stop Date/Time Anesthesia Stop Date: 02/27/24 Anesthesia Stop Time: 15:49
[2024-02-27 16:00] VITALS: BP 126/83; PULSE 84; RESP 16; O2SAT 97
--- NOTE | 2024-02-27 16:00 | W.PODPROC_ITS ---
Date of Procedure: 02/27/24 Surgeon: Logan Huffman DPM Pre-op Diagnosis: 1. Hallux rigidus left 2. 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 Gouty arthropathy left foot 4. Hammertoe 2nd digit left foot Post-op Diagnosis: 1. Hallux rigidus left 2. 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 Gouty arthropathy left foot 4. Hammertoe 2nd digit left foot Type of Procedure: 1. First MPJ fusion left foot 2. Partial 2nd metatarsal head resection left foot 3. Hammertoe repair 2nd digit left Indications: Patient is having ongoing severe pain to the left foot. He has elected surgical intervention. I reviewed the procedure, recovery, expectation potential complications. These include but are not limited to: Poor wound healing, infection, under correction, over correction, malunion, delayed union, nonunion, hardware irritation or failure, nerve injury, complex regional pain syndrome, potentially future surgery, deep venous thrombosis, pulmonary embolism and possible . He understands risks written consent was obtained. All questions answered. Site marked. Procedure Description: Patient brought the operating room placed supine position on operating table that time IV sedation was initiated local anesthetic injected into the left foot. He was prepped and draped in sterile fashion. Standard time-out protocol followed. Left foot was exsanguinated the tourniquet inflated. A dorsal incision was made over the 1st metatarsophalangeal joint. The incision was carried down through skin subcutaneous tissues. Significant amount of gouty tophi was initially encountered surrounding the joint. I excised as much as possible. Linear incision in the joint capsule made and to extremely large osteophytes were removed. The joint is severely arthritic with significant loss of cartilage and surrounding bony spurring. Rongeur was used to remove bony spurs from the base of the proximal phalanx and 1st metatarsal head. Bone was found to be quite soft. In light of this I proceeded with parallel bone cuts resecting the cartilage and subchondral bone from the base of the proximal phalanx and the head of the 1st metatarsal. Position was checked with a metal lid to simulate weight-bearing. Position appeared to be optimal. We irrigated with normal sterile saline. Opposing joint surfaces fenestrated with K-wire. With the fusion site held in optimal position and guide pin was placed from distal medial to proximal lateral and a 2nd placed from proximal medial to distal lateral. Position double checked and found to be optimal. 4.0 cannulated screws were then placed over the guide pins using standard technique. Excellent compression noted across the fusion site. Because of the soft bone and for additional stability a dorsal plate was then applied. 2.7 mm cortical nonlocking screw was placed distally and 2.7 mm cortical locking screw was placed proximal x2 and distal x1. C-arm confirmed excellent fusion site. Position appeared excellent. Wound was thoroughly irrigated normal sterile saline. Joint capsule repaired with 3-0 Vicryl. Subcutaneous tissues reap proximated 4-0 Monocryl and skin closed with 4-0 Prolene. Linear incision was made over the 2nd metatarsophalangeal joint. The incision was carried down through skin subcutaneous tissues. [place] lengthening performed on the extensor digitorum longus tendon. Joint capsule was identified it was significantly inflamed and there was gouty tophi in surrounding area. Transverse incision made through the joint capsule and the joint entered. Large joint osteophyte removed. Using a rongeur the base of the proximal phalanx was removed follow-up bony spurring. There was extensive loss of cartilage and deterioration of the joint. Using a sagittal saw the distal 3rd of the 2nd metatarsal head was resected using a sagittal saw. Dorsal aspect spurring was removed with rongeur. Wound was thoroughly irrigated normal sterile saline. Position checked under C-arm found to be optimal. The excess joint capsule was advanced into the false joint and sutured in place with 4-0 Vicryl. Subcutaneous tissues reapproximated 4-0 Monocryl and skin closed with 4-0 Prolene. Unfortunate 2nd toe head drooped into an acceptable position. Is also quite long and anticipate significant problems long-term free do not address this now. We will proceed with 2nd digit hammertoe repair. Linear incision was made over the PIPJ 2nd toe. Incision carried down through skin subcutaneous tissues. Transverse incision was then made through the PIPJ joint capsule and extensor tendon. The medial and lateral collateral ligaments were released. Next the head of the proximal phalanx and the base of the middle phalanx were resected with a oscillating saw. There was also extensive gout tophi within this joint as well. We irrigated normal sterile saline. An attempt to place a retro fuse screw was made to put unfortunately the patient's canal was too large and no purchase obtained. The retro screw fuse removed. A nitro fuse implant was placed. The proximal 1 was threaded into the canal of the middle phalanx and then the prongs were advanced into the drill hole on the proximal phalanx. 0.045 K-wire was advanced to wide the prongs and left in place for additional stability. K-wire was bent cut and capped with a Jergens ball. Wound was irrigated normal sterile saline. The extensor tendon repaired with 4-0 Vicryl. Skin closed with 4-0 Prolene. Tourniquet was released and normal capillary fill time returned all digits. No excessive bleeding noted. Sterile dressing was then placed. He was placed in a well-padded cam boot. He was transferred from OR to same-day surgery with vital signs stable and vascular status intact. He is given both written and verbal postop instructions. He is weight-bearing as tolerated to the heel with crutch assistance in the Cam boot. He will be discharged home per same-day surgery protocol. He is given oxycodone for pain. He will follow-up in clinic in 3 days. Anesthesia: MAC and local Hemostasis: ankle Estimated blood loss (mL): 30 Implants: Synthes 4.0 cannulated screws x2, Arthrex 2.7 mm mini frag plate x1, 2.7 mm locking screws x3 and 2.7 mm nonlocking screw x1, Arthrex Dynite hammertoe implant Specimens: none sent Disposition: same day
--- NOTE | 2024-02-27 16:00 | W.ANESCHARGE ---
Anesthesia Charges Start Date/Time Anesthesia Start Date: 02/27/24 Anesthesia Start Time: 12:52 Stop Date/Time Anesthesia Stop Date: 02/27/24 Anesthesia Stop Time: 15:49
[2024-02-27 16:15] VITALS: BP 116/74; PULSE 77; RESP 16; O2SAT 99
[2024-02-27 16:30] VITALS: BP 93/74; PULSE 80; RESP 16; O2SAT 99
== END 2024-02-27 16:42 | disposition home or self-care (01) ==
PROVIDERS: Anesthesiology; PCP Family Medicine; Visit Provider Podiatrist
PROC: (CPT 28740; principal; 2024-02-27 12:15)
DX: M20.22 Hallux rigidus, left foot (principal); M19.072 Primary osteoarthritis, left ankle and foot; M10.9 Gout, unspecified; M20.42 Other hammer toe(s) (acquired), left foot; I10 Essential (primary) hypertension; I48.0 Paroxysmal atrial fibrillation; Z79.01 Long term (current) use of anticoagulants
CPT/HCPCS: 28750; 28288; 28285; 01480; 73620; 76000; 85610; C1713; J0665; J0690; J2250; J2704; J3010; J7030